=== PATIENT | female | born 1950 | race Caucasian/White ===

== ENCOUNTER → 2017-04-15 | Outpatient (CLI) | payer MEDICARE, MEDICAID ==
[~2017-04-15] MED LIST: ALBUAER3 INH; AMLO5TAB2 PO; ANAS1TAB PO; ASPI-110 PO; BISO10TA5 PO; CALC600T10 PO; IPRAAER INH; ISOS30TA3 PO; LEVO125T4 PO; LEXA20TA PO; LYRI100C PO; MIRA3350 PO; MONT10TA4 PO; OMEP20TA PO; ONDA1TAB17 PO; PERC10TA27 PO; PRAV40TA2 PO; TRAZ100T6 PO; UMEC1AER INH; [UNRECOGNIZED DRUG - CODE] INH; nebulizer
[2017-04-15 11:11] LABS: HEMATOCRIT 38.4 % (35.0-46.0); MEAN CELL VOLUME 98.4 FL (80.0-100.0); MEAN CORPUSCULAR HEMOGLOBIN 32.4 PG (27.0-34.0); MEAN CORPUSCULAR HGB CONC 32.9 % (32.0-36.0); PLATELET COUNT 394 TH/MM3 (150-450); RED CELL DISTRIBUTION WIDTH 14.2 % (11.6-17.2); REVIEW FLAG FINAL; WHITE BLOOD COUNT 7.8 TH/MM3 (4.0-11.0)
[2017-04-15 11:36] LABS: ALT (GPT) 7 U/L (10-53); ANION GAP 3 MEQ/L (5-15); AST (GOT) 12 U/L (15-37); BICARBONATE 33.6 MEQ/L (21.0-32.0); BLOOD UREA NITROGEN 6 MG/DL (7-18); CHLORIDE 105 MEQ/L (98-107); GLOMERULAR FILTRATION RATE 97 ML/MIN (>89); GLUCOSE,FASTING 89 MG/DL (74-99); POTASSIUM 4.3 MEQ/L (3.5-5.1); SODIUM (NA) 142 MEQ/L (136-145)
[2017-04-15 11:39] LABS: ALKALINE PHOSPHATASE 82 U/L (45-117); TOTAL BILIRUBIN ADULT 0.2 MG/DL (0.2-1.0)
== END ==
LOC: CLAB 10:44
PROVIDERS: ATTEND Family Medicine
DX: R10.13 Epigastric pain (principal)
CPT/HCPCS: 36415; 80053; 83690; 85027

== ENCOUNTER → 2017-07-29 | Day surgery (SDC) | payer MEDICARE, MEDICAID ==
[~2017-07-29] MED LIST changes: -ASPI-110 PO; +ASPI1TAB57 PO; +AZIT500T2 PO; +BUPR150XL PO; +LIDOCAINE HCL 1% PF 30 ML VIAL INFIL ONE; +MEPERIDINE HCL 25 MG/ML VIAL IV ONE; -OMEP20TA PO; +OMEP20TA93 PO; -ONDA1TAB17 PO; +ONDA8TAB7 PO; +PRED20 PO; +PRED5TAB PO; +PROPOFOL 200 MG/20 ML AMP IV ONE; +SODIUM CHLORIDE 0.9% 10 ML VIAL ONE; +TRAZ100T10 PO; -TRAZ100T6 PO; +methylPREDNISolone ACETATE 80 MG/ML VIAL ONE
--- NOTE | 2017-07-29 10:22 | M6 ---
cc: KELLY LOCK M.D. DATE 07/29/2017 DATE OF 1950 PROCEDURE Fluoroscopically guided L4-5 interlaminar epidural steroid injection. PROCEDURE NOTE History and physical was completed and signed. Consent was signed. Procedure site was marked. Medications were listed and reconciled. Pain score was recorded. Allergies were noted. Timeout was taken. Fluoroscopy time was recorded where applicable. Sedation was administered or directed by Dr. Lock. The patient was given oxygen. The patient was monitored by a registered nurse. Total procedure time was greater than 15 minutes. An IV was started, blood pressure cuff, pulse oximeter and EKG were applied. The patient was placed in the prone position on a [place] table, sedated with small amounts of propofol titrated to effect. Vital signs were monitored and remained stable throughout the procedure. The lumbar area was prepped with alcohol and 10% Betadine solution, draped with sterile drapes. Fluoroscopy was used to visualize the L4-5 interlaminar space. The skin was infiltrated with 1% Xylocaine using a 27-gauge needle. Then a 3-1/2 inch, 18-gauge Peck needle was advanced using fluoroscopic guidance and the [id number] technique into the epidural space at L4-5 slightly to the right of the midline. There was negative aspiration for blood or any other type of fluid and the patient was given 10 mL of 0.5% Xylocaine, 80 mg of Depo-Medrol. Following this the patient was taken to the recovery room with stable vital signs, neurologically intact. WMD DAMON Velasquez/KWASI /10:01 AM /10:05 AM
== END | disposition home or self-care (01) ==
LOC: PHSDC 08:51
PROVIDERS: ATTEND Pain Medicine Interventional Pain Medicine
DX: M54.5 Low back pain (principal)
CPT/HCPCS: 62323; 99152; J1040; J2175